=== PATIENT | male | born 1990 | race Asian ===

== ENCOUNTER 2017-02-22 04:18 | Emergency (ER) | payer OTHER ==
[2017-02-22] MEDS ORDERED: Diazepam TAB(*) 5 MG PO ONE (05:44)
[2017-02-22] MEDS ORDERED: Metoclopramide IV* 5 MG/ML 2 ML VIAL IV SLOW PU ONE (05:44)
[2017-02-22] MEDS ORDERED: diPHENhydraMINE IV* 25 MG in NS 0.9% 50 ML* 50 ML IVPB ONE (05:44)
[2017-02-22] MEDS ORDERED: Ketorolac INJ* 30 MG/ML 1 ML VIAL IV PUSH ONE (05:44)
[2017-02-22 07:02] LABS: Hematocrit 48 % (42-52); Hemoglobin 16.3 g/dl (14.0-18.0); Mean Corpuscular HGB Conc 34 g/dl (31-36); Mean Corpuscular Hemoglobin 32 pg (27-31); Mean Corpuscular Volume 93 fL (80-94); Mean Platelet Volume 8 um3 (7.4-10.4); Red Blood Count 5.17 10^6/ul (4.0-5.4); Red Cell Distribution Width 13 % (10.5-15); White Blood Count 6.1 10^3/ul (3.5-10.8)
[2017-02-22 07:24] LABS: BUN/Creatinine Ratio 16.7 (8-20); Calcium 9.3 mg/dL (8.6-10.3); EGFR African American 139.9 (>60); EGFR Non-African American 108.8 (>60); Potassium 4.1 mmol/L (3.5-5.0)
[2017-02-22] MEDS ORDERED: Acetaminophen TAB* 325 MG PO ONE (08:31)
--- NOTE | 2017-02-22 09:00 | RAD ---
HISTORY: Headache COMPARISONS: None TECHNIQUE: Multiple contiguous axial CT scans were obtained of the head without intravenous contrast. FINDINGS: HEMORRHAGE/INFARCT: There is no hemorrhage or acute infarct. MASSES/SHIFT: There is no mass or shift. EXTRA-AXIAL SPACES: There are no extra-axial fluid collections. SULCI AND VENTRICLES: The sulci and ventricles are normal in size and position for the patient's stated age. CEREBRUM: There are no focal parenchymal abnormalities. BRAINSTEM: There are no focal parenchymal abnormalities. CEREBELLUM: There are no focal parenchymal abnormalities. VESSELS: The vessels are grossly normal. PARANASAL SINUSES: The paranasal sinuses are clear. ORBITS: The orbits are unremarkable. BONES AND SOFT TISSUE: No bone or soft tissue abnormalities are noted. OTHER: None IMPRESSION: NO ACUTE INTRACRANIAL PATHOLOGY.
--- NOTE | 2017-02-22 10:07 | ED ---
Sue Humphreys Matthew, scribed for Ian Woodard MD on 02/22/17 at 0837 . Progress - Progress Note Progress Note: The patient is a sign out from Dr. Garcia. The patient has a Hx of tension headaches. Currently the patient is continuing to have the same intensity of pain in the left occipital region, which is new from his previous headaches. The pain in the temporal region has mildly improved and normally the location of his tension headaches. Physical Exam: VITAL SIGNS: Reviewed. GENERAL: Patient is a well developed and nourished who is lying comfortable in the stretcher. Patient is not in any acute respiratory distress. HEAD AND FACE: No signs of trauma. No ecchymosis, hematomas or skull depressions. No sinus tenderness. Positive point tenderness in the parietal- occipital area. EYES: PERRLA, EOMI x 2, No injected conjunctiva, no nystagmus. No photophobia. EARS: Hearing grossly intact. Ear canals and tympanic membranes are within normal limits. MOUTH: Oropharynx within normal limits. NECK: Supple, trachea is midline, no adenopathy, no JVD, no carotid bruit, no c- spine tenderness, neck with full ROM. No meningeal signs, no Kernig's or brudzinskis signs. CHEST: Symmetric, no tenderness at palpation LUNGS: Clear to auscultation bilaterally. No wheezing or crackles. CVS: Regular rate and rhythm, S1 and S2 present, no murmurs or gallops appreciated. ABDOMEN: Soft, non-tender. No signs of distention. No rebound no guarding, and no masses palpated. Bowel sounds are normal. EXTREMITIES: FROM in all major joints, no edema, no cyanosis or clubbing. NEURO: Alert and oriented x 3. No acute neurological deficits. Speech is normal and follows commands. SKIN: Dry and warm - Results/Orders Results/Orders: Brain CT IMPRESSION: NO ACUTE INTRACRANIAL PATHOLOGY. Course/Dx - Course Course Of Treatment: The patient was signed out by Dr. Garcia. The patient came with a tension headache. Dr. Garcia requested to re-evaluate the patient and discharged him home. I re-examined the patient and he reports that he continues to have pain in the occipital temporal region. This is a point tenderness. Therefore, I decided to do a head CT. Head CT shows no acute pathology. I gave the patient one dose of Tylenol and he reports that hes feeling better. I have no suspicion for Meningitis since patient has no fever, no neck pain and has no meningeal signs. No suspicion for a hemorrhagic bleed since CT of head is negative. No suspicion for aneurysms since pain has point tenderness and it is reproducible . However patient needs to f/u with PCP. The patient will be discharged home with follow-up from his PCP. I discussed all the findings and test results with the patient. Patient was instructed to return to the emergency room immediately if any of the symptoms return or worsens. Patient understands and agrees. Plan of care was discussed with the patient and patient understands and agrees with the plan of care. All questions were answered at patient satisfaction. There were no further complaints or concerns. Patient is alert and oriented x 3. Patient vital signs are stable. Patient is to follow up with primary care physician in the next 2 to 3 days. Patient understands and agrees. - Diagnoses Provider Diagnoses: Headache The documentation as recorded by the Sue templeton Matthew accurately reflects the service I personally performed and the decisions made by me, Ian Woodard MD.
[2017-02-22 11:05] VITALS: BP 110/84
--- NOTE | 2017-02-22 21:03 | ED ---
Quintni Humphreys Billy scribed for Andrey Garcia MD on 02/22/17 at 0542 . Headache - HPI Summary HPI Summary: Patient is a 27 year-old male coming to [facility] for evaluation of headache. He was diagnosed with muscle tension headache at [place] 8 months ago. He was prescribed Naproxen for pain management. However, in the last 2-3 days, he noticed a new origin of pain in the left occipital region. Pain severity 9/10. The pain is worse with palpation to the scalp. He reports photophobia. - History Of Current Complaint Chief Complaint: EDHeadache Stated Complaint: BUMP ON LEFT SIDE OF HEAD AND LEFT EAR Time Seen by Provider: 02/22/17 05:16 Hx Obtained From: Patient Onset/Duration: Gradual Onset, Worse Since - 2-3 days ago Initially Headache Was: Moderate Currently Pain Is: Moderate Timing: Constant Location of Headache: Occipital Aggravating Factor: Bright Lights Allevating Factors: Nothing - Allergies/Home Medications Allergies/Adverse Reactions: Allergies Allergy/AdvReac Type Severity Reaction Status Date / Time No Known Allergies Allergy Verified 02/22/17 04:28 PMH/Surg Hx/FS Hx/Imm Hx Endocrine/Hematology History: Denies: Hx Diabetes Neurological History: Reports: Hx Headaches Infectious Disease History: No Infectious Disease History: Denies: Traveled Outside the [place] in Last 30 Days - Family History Family History: Mother with headaches. - Social History Alcohol Use: Occasionally Substance Use Type: Reports: Marijuana Smoking Status (MU): Heavy Every Day Tobacco Smoker Review of Systems Negative: Fever, Chills Positive: Photophobia. Negative: Erythema Negative: Sore Throat Negative: Chest Pain Negative: Shortness Of Breath, Cough Negative: Vomiting, Nausea Negative: Myalgia, Edema Positive: Headache All Other Systems Reviewed And Are Negative: Yes Physical Exam - Summary Physical Exam Summary: Constitutional: Well-developed, Well-nourished, Alert. (-) Distressed Skin: Warm, Dry HENT: There is point tenderness over the left parietal scalp. No erythema, fluctuance, or lesions visualized. Eyes: Conjunctiva normal Neck: Musculoskeletal ROM normal neck. (-) JVD, (-) Stridor, (-) Tracheal deviation Cardio: Rhythm regular, rate normal, Heart sounds normal; Intact distal pulses; The pedal pulses are 2+ and symmetric. Radial pulses are 2+ and symmetric. (-) Murmur Pulmonary/Chest wall: Effort normal. (-) Respiratory distress, (-) Wheezes, (-) Rales Abd: Soft, (-) Tenderness, (-) Distension, (-) Guarding, (-) Rebound Musculoskeletal: (-) Edema Lymph: (-) Cervical adenopathy Neuro: Alert, Oriented x3 Psych: Mood and affect Normal Triage Information Reviewed: Yes Vital Signs On Initial Exam: Initial Vitals Temp Pulse Resp BP Pulse Ox 97.5 F 75 14 142/85 100 02/22/17 04:24 02/22/17 04:24 02/22/17 04:24 02/22/17 04:24 02/22/17 04:24 Vital Signs Reviewed: Yes - [place] Coma Scale Coma Scale Total: 15 Diagnostics - Vital Signs Vital Signs Temp Pulse Resp BP Pulse Ox 02/22/17 04:27 97.5 F 89 14 142/85 100 02/22/17 04:24 97.5 F 75 14 142/85 100 - Laboratory Lab Results: Lab Results 02/22/17 02/22/17 Range/Units 06:40 06:40 WBC 6.1 (3.5-10.8) 10^3/ul RBC 5.17 (4.0-5.4) 10^6/ul Hgb 16.3 (14.0-18.0) g/dl Hct 48 (42-52) % MCV 93 (80-94) fL MCH 32 H (27-31) pg MCHC 34 (31-36) g/dl RDW 13 (10.5-15) % Plt Count 185 (150-450) 10^3/ul MPV 8 (7.4-10.4) um3 Sodium 136 (133-145) mmol/L Potassium 4.1 (3.5-5.0) mmol/L Chloride 102 (101-111) mmol/L Carbon Dioxide 29 (22-32) mmol/L Anion Gap 5 (2-11) mmol/L BUN 14 (6-24) mg/dL Creatinine 0.84 (0.67-1.17) mg/dL Est GFR ( Amer) 139.9 (>60) Est GFR (Non-Af Amer) 108.8 (>60) BUN/Creatinine Ratio 16.7 (8-20) Glucose 95 (70-100) mg/dL Calcium 9.3 (8.6-10.3) mg/dL Result Diagrams: 02/22/17 06:40 02/22/17 06:40 Lab Statement: Any lab studies that have been ordered have been reviewed, and results considered in the medical decision making process. Headache Course/Dx - Course Assessment/Plan: 27M to the ED for evaluation of headache. In the ED course, he was given benadryl, valium, toradol, and reglan. Signed out pending therapeutic effect. - Diagnoses Provider Diagnoses: Headache Discharge - Discharge Plan Condition: Stable Disposition: HOME Discharge Disposition Comment: Signed out pending therapeutic effect. Prescriptions: Naproxen TAB* [Naprosyn 250 mg TAB*] 500 mg PO Q8H PRN #20 tab PRN Reason: Pain Patient Education Materials: Naproxen (By mouth), Tension Headache (ED) Forms: *School Release Referrals: Shaan Davis MD [Medical Doctor] - 4 Days [facility] DAWN Chauhan [Primary Care Provider] - 2 Days Additional Instructions: Please follow-up with your primary care physician in the next 2 days. The documentation as recorded by the Quintin templeton Billy accurately reflects the service I personally performed and the decisions made by , Andrey Garcia MD.
== END 2017-02-22 11:15 | disposition home or self-care (01) ==
LOC: ED 04:18
DX: R51 Headache (principal); H53.149 Visual discomfort, unspecified; F17.210 Nicotine dependence, cigarettes, uncomplicated
CPT/HCPCS: 36415; 70450; 80048; 85027; 96374; 96375; 99283; A9270-GY; J1200; J1885

== ENCOUNTER 2019-06-27 16:09 | Emergency (ER) | payer OTHER ==
--- NOTE | 2019-06-27 16:29 | ED ---
Psychiatric Complaint - HPI Summary HPI Summary: 29 year [facility] complains of worsening suicidal ideation since this afternoon. Symptoms aggravated by nothing. Symptoms alleviated by nothing. Patient denies suicidal plan. Although patient has suicidal ideation, patient cares about his family and girlfriend so he states he doesn't want to act on his suicidal ideation. He states that he left work early today because he felt suffocated and wanted an escape. Hx suicidal ideation. He states that when he feels suicidal, he usually takes walks near his [place] where there [place], and [facility] counselor was concerned about his safety so the counselor called EMS. No hx suicidal attempt. No hx depression or anxiety. Not taking psychiatric medication. - History Of Current Complaint Chief Complaint: EDMentalHealth Time Seen by Provider: 06/27/19 16:20 Hx Obtained From: Patient Onset/Duration: Lasting Hours, Still Present Timing: Constant Aggravating Factor(s): Nothing Alleviating Factor(s): Nothing Related History: Negative For: Prior Psychiatric Issues Has Suicidal: Reports: Thoughts. Denies: With A Plan - Allergies/Home Medications Allergies/Adverse Reactions: Allergies Allergy/AdvReac Type Severity Reaction Status Date / Time No Known Allergies Allergy Verified 02/22/17 04:28 Home Medications: Home Medications NK [No Home Medications Reported] 06/27/19 [History Confirmed 06/27/19] PMH/Surg Hx/FS Hx/Imm Hx Endocrine/Hematology History: Denies: Hx Diabetes Neurological History: Reports: Hx Headaches Psychiatric History: Denies: Hx Anxiety, Hx Depression - Surgical History Surgery Procedure, Year, and Place: n/a Infectious Disease History: No Infectious Disease History: Denies: Traveled Outside the [place] in Last 30 Days - Family History Known Family History: Positive: Diabetes Family History: Mother with headaches. NEG: suicial ideation - Social History Alcohol Use: Occasionally Hx Substance Use: Yes Substance Use Type: Reports: Marijuana Hx Tobacco Use: Yes Smoking Status (MU): Heavy Every Day Tobacco Smoker Review of Systems Negative: Fever Positive: Other - suicidal ideation All Other Systems Reviewed And Are Negative: Yes Physical Exam - Summary Physical Exam Summary: VITAL SIGNS: Reviewed. GENERAL: Patient is a well-developed and nourished (MALE OR FEMALE) who is lying comfortable in the stretcher. Patient is not in any acute respiratory distress. HEAD AND FACE: No signs of trauma. No ecchymosis, hematomas or skull depressions. No sinus tenderness. EYES: PERRLA, EOMI x 2, No injected conjunctiva, no nystagmus. EARS: Hearing grossly intact. Ear canals and tympanic membranes are within normal limits. MOUTH: Oropharynx within normal limits. NECK: Supple, trachea is midline, no adenopathy, no JVD, no carotid bruit, no c- spine tenderness, neck with full ROM. CHEST: Symmetric, no tenderness at palpation. LUNGS: Clear to auscultation bilaterally. No wheezing or crackles. CVS: Regular rate and rhythm, S1 and S2 present, no murmurs or gallops appreciated. ABDOMEN: Soft, non-tender. No signs of distention. No rebound, no guarding, and no masses palpated. Bowel sounds are normal. EXTREMITIES: FROM in all major joints, no edema, no cyanosis or clubbing. NEURO: Alert and oriented x 3. No acute neurological deficits. Speech is normal and follows commands. SKIN: Dry and warm. PSYCH: Depressed, quiet, and denies any suicidal thoughts or plan. No homicidal thoughts or plan. No signs of psychosis or pressure speech. No tangential speech. Triage Information Reviewed: Yes Vital Signs On Initial Exam: Initial Vitals Temp Pulse Resp BP Pulse Ox 98.0 F 70 18 141/100 98 06/27/19 16:14 06/27/19 16:14 06/27/19 16:14 06/27/19 16:14 06/27/19 16:14 Vital Signs Reviewed: Yes Diagnostics - Vital Signs Vital Signs Temp Pulse Resp BP Pulse Ox 06/27/19 16:14 98.0 F 70 18 141/100 98 - Laboratory Result Diagrams: 06/27/19 16:42 06/27/19 16:42 Lab Statement: Any lab studies that have been ordered have been reviewed, and results considered in the medical decision making process. Re-Evaluation - Re-Evaluation First Eval Re-Evaluation Time: 16:25 Comment: Patient is medically cleared for MHE Course/Dx - Course Assessment/Plan: Blood work w/o a significant abnormality. He is medically cleared. He is awaiting a MHE. Patient is hemodynamically stable and A+O x 3. Dr. Post (Psychiatry) assess patient and clear the patient and recommends to discharge the patient home with outpatient follow up. - Differential Dx/Clinical Impression Provider Diagnosis: Major depressive disorder, single episode, unspecified Discharge - Sign-Out/Discharge Documenting (check all that apply): Patient Departure - Discharge Patient Received Moderate/Deep Sedation with Procedure: No - Discharge Plan Condition: Stable Disposition: HOME - Billing Disposition and Condition Condition: STABLE Disposition: Home - Attestation Statements Document Initiated by Scribe: Yes Documenting Scribe: Gail Ayala Provider For Whom Joseph is Documenting (Include Credential): Ian Woodard MD Scribe Attestation: Gail Humphreys, scribed for Ian Woodard MD on 06/27/19 at 1839. Scribe Documentation Reviewed: Yes Provider Attestation: The documentation as recorded by the Gail templeton accurately reflects the service I personally performed and the decisions made by Ian tee MD Status of Scribe Document: Viewed
[2019-06-27 16:56] LABS: ABS Basophils 0.1 10^3/ul (0-0.2); ABS Eosinophils 0.1 10^3/ul (0-0.6); ABS Lymphocytes 2.1 10^3/ul (1.0-4.8); ABS Monocytes 0.7 10^3/ul (0-0.8); ABS Neutrophils 5.1 10^3/ul (1.5-7.7); Eosinophil % 1.4 %; Hematocrit 49 % (42-52); Hemoglobin 16.6 g/dL (14.0-18.0); Lymphocyte % 25.8 %; Mean Corpuscular HGB Conc 34 g/dL (31-36); Mean Corpuscular Hemoglobin 31 pg (27-31); Mean Corpuscular Volume 92 fL (80-94); Mean Platelet Volume 7.5 fL (7.4-10.4); Nucleated Red Blood Cells % 0.1; Platelet Count 222 10^3/uL (150-450); Red Blood Count 5.29 10^6 /uL (4.18-5.48); Red Cell Distribution Width 14 % (10-15); White Blood Count 8.1 10^3/uL (3.5-10.8)
[2019-06-27 17:08] LABS: ALT 39 U/L (7-52); AST 20 U/L (13-39); Albumin 4.8 g/dL (3.2-5.2); Albumin/Globulin Ratio 1.9 (1-3); Alkaline Phosphatase 63 U/L (34-104); Anion Gap 8 mmol/L (2-11); BUN/Creatinine Ratio 20.2 (8-20); Blood Urea Nitrogen 17 mg/dL (6-24); CO2 Carbon Dioxide 24 mmol/L (22-32); Calcium 9.6 mg/dL (8.6-10.3); Chloride 108 mmol/L (101-111); EGFR African American 129.8 (>60); EGFR Non-African American 107.3 (>60); Globulin 2.5 g/dL (2-4); Glucose 103 mg/dL (70-100); Potassium 3.6 mmol/L (3.5-5.0); Sodium 140 mmol/L (135-145); Total Protein 7.3 g/dL (6.4-8.9)
[2019-06-27 17:20] LABS: Acetaminophen < 15 mcg/mL; Alcohol < 10 mg/dL (<10); Salicylate < 2.50 mg/dL (<30)
[2019-06-27 17:35] LABS: TSH (Thyroid Stimulating Horm) 1.23 mcIU/mL (0.34-5.60)
[2019-06-27 18:32] VITALS: BP 131/95
== END 2019-06-27 18:31 | disposition home or self-care (01) ==
LOC: ED 16:09
DX: F32.9 Major depressive disorder, single episode, unspecified (principal); F17.210 Nicotine dependence, cigarettes, uncomplicated
CPT/HCPCS: 36415; 80053; 80320; 80329; 84443; 85025; 99284; G0480